=== PATIENT | female | born 1950 | race Caucasian/White ===

== ENCOUNTER 2025-04-27 13:54 | Outpatient (AMB) | payer OTHER, SELFPAY ==
--- NOTE | 2025-04-27 14:11 | PD.GSCLVISIT ---
Vital Signs - [facility] 04/27/25 14:12 Height 1.55 m Height Method Measured Weight 78.16 kg Weight Measurement Method Standing Scale BMI 32.5 BP 132/77 H Blood Pressure Source Automatic Cuff Blood Pressure Location Left Upper Arm Position Sitting Respiration 18 Pulse 69 Pulse Source Monitor Temp 97.1 F Temp Source Temporal Artery Scan Pulse Oximetry (%) 97 Oxygen Delivery Method Room Air Med/Allergies Allergies & Medications Allergies No Known Allergies Allergy (Verified 04/27/25 14:13) Medication Reconciliation Unobtainable 04/27/25 [History Confirmed 04/27/25] MA Intake Visit Data Collection New Patient or Established: New Patient (never been to [facility]) Seen by Clinical Staff ONLY (RN/MA): No Reason for Visit:: REFERRAL RECTAL POLYPS Pain Present Currently: No Pain scale:: 0 Pain Scale Used: Wilson-Lowery/Numerical Mortgage Loan Officer Originator Required: No PCP or OBGYN visit in last 3 months: Yes Hx Now: No Do You Feel Safe at Home: Yes Authorities Contacted: N/A Smoking Status Smoking Status: Never smoker Immunization / Flu Flu Vaccine in the Last 12 Months: No Flu Vaccine Exclusion Criteria: Refused by Patient Past Medical History Family History OTHER FAMILY HX: Sister: Colon cancer diagnosed at 67 yo Maternal Aunt: Cervical cancer unspecified age at diagnosis Surgical History OTHER SURGICAL HX: Other surgical history: , hysterectomy, tonsillectomy Social History SMOKING STATUS: Smoking status: Never smoker HPI HPI Narrative 74F with HTN, HLD, DM on insulin, CKD [address] Valencia for transanal resection of rectal mass. Patient has been having rectal bleeding for the past few months and underwent colonoscopy March 30 with findings of 9 polyps in total, including tubulovillous adenomas of the proximal transverse, mid transverse and sigmoid colon. Patient additionally had tubular and serrated adenomas in the ascending colon. Patient was also noted to have a rectal mass described as starting from the second rectal valve and extending into the third rectal valve, with areas of the polyp showing JNET2b or JNET3 surface and vascular pattern. Because of the size and JNET pattern the rectal mass was not removed endoscopically and that was not biopsied. Patient reports that she feels well overall, not currently having pain although she continues to have episodes of rectal bleeding with bowel movements PMH: HTN, HLD, DM, CKD 4 PSH: Tonsillectomy 1959, complete hysterectomy 1979, in 1983 Meds: Insulin, duloxetine, atorvastatin, carvedilol, lisinopril, Ozempic, metformin Allergies: NKDA Family history: Sister diagnosed with colon cancer at age 67 ROS Review of Systems Systems Reviewed: All systems reviewed, normal except as documented Objective/Exam General General Appearance: alert, cooperative and well groomed Resp Respiratory exam: Absent respiratory distress Abdominal Abdominal exam: Present soft; Absent distention or tenderness Rectal Rectal exam: Present normal inspection, normal rectal tone and other (No palpable mass on BASIL, no mass visualized on anosocpy) Assessment & Plan Diagnosis / Problem List (1) Rectal polyp: Status: Acute Assessment & Plan: 74F with HTN, HLD, DM on insulin, CKD 4 s/p colonoscopy 03/30/25 with findings of multiple polyps including a rectal polyp which was not removed due to size and JNET pattern. As I was unable to visualize the lesion on anoscopy I explained to pt that I would likely not be able to visualize and/or fully excise it in the operating room transanally. I reached out to Dr Kline who confirmed he does perform TAMIS procedures which would be preferable for locating the lesion and he kindly agreed to see her. I will send a referral accordingly and provided pt with his office phone # Orders: Referrals General surgery K62.1 - Rectal polyp Advanced Care Planning Advance care planning discussed with:: other Office Procedures GNS Level of Care Nursing/Assessment Patient Status: Initial/New Patient Nursing Assessment/Reassesment: Medication Reconciliation, Update PMH in EMR and Vital Signs Coordination of Care: Complex Care and Chronic Disease 1-5, Education Complex Pt/Fam, Consent,records obtained, informed consent, Results/Orders obtained and Staff clarify orders New Patient Charge New Patient Point Assignment: [id number] 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
[2025-04-27 14:12] VITALS: BP 132/77; PULSE 69; RESP 18; TEMP 36.2; O2SAT 97; BMI 32.5
== END 2025-04-27 14:54 | disposition home or self-care (01) ==
PROVIDERS: PCP Internal Medicine Endocrinology, Diabetes & Metabolism; Referring Provider Internal Medicine Endocrinology, Diabetes & Metabolism; Supervising Provider Surgery; Visit Provider Surgery
DX: K62.1 Rectal polyp (principal)
CPT/HCPCS: 99203; G0463